=== PATIENT | female | born 1950 | race Caucasian/White ===

== ENCOUNTER 2019-07-30 16:10 | Outpatient (CLI) | payer MEDICARE, SELFPAY ==
--- NOTE | ~2019-07-30 | US_ITS ---
EXAMINATION: US thyroid DATE: 07/30/2019 16:54 INDICATION: Thyroid cancer status post thyroidectomy. TECHNIQUE: Multiple ultrasound images of the thyroid were obtained. COMPARISON: None. FINDINGS: There is no residual thyroid. There is no lymphadenopathy in the areas examined. IMPRESSION: 1. Thyroidectomy. Reviewed, dictated and finalized at location A. IMPRESSION: 1. Thyroidectomy.
== END 2019-07-30 16:11 | disposition home or self-care (01) ==
PROVIDERS: PCP Family Medicine; Visit Provider Internal Medicine Endocrinology, Diabetes & Metabolism
DX: C73 Malignant neoplasm of thyroid gland (principal)
CPT/HCPCS: 76536

== ENCOUNTER 2019-11-07 16:24 | Outpatient (CLI) | payer MEDICARE, SELFPAY ==
--- NOTE | ~2019-11-07 | MM_ITS ---
EXAMINATION: MM screening carina BI w ginna HISTORY: Screening mammogram TECHNIQUE: Craniocaudal and mediolateral oblique 3-D tomosynthesis images were obtained and synthetic 2-D images were generated. CAD analysis was submitted and interpreted. COMPARISON: No prior mammogram is available for comparison at this institution. BREAST PARENCHYMAL COMPOSITION: There are scattered areas of fibroglandular density. FINDINGS: RIGHT BREAST: There is no evidence of suspicious mass, calcification, or architectural distortion to suggest malignancy. LEFT BREAST: There is a possible mass in the middle third of the central breast best appreciated 4.5 cm from the nipple on craniocaudal tomosynthesis image 28/57. IMPRESSION: 1. Possible left breast mass 2. Additional mammographic views and possible breast ultrasound are recommended. BI-RADS Category 0: Incomplete: Needs additional imaging evaluation. Reviewed, dictated and finalized at location A. IMPRESSION: 1. Possible left breast mass 2. Additional mammographic views and possible breast ultrasound are recommended . BI-RADS Category 0: Incomplete: Needs additional imaging evaluation.
== END 2019-11-07 16:25 | disposition home or self-care (01) ==
PROVIDERS: PCP Family Medicine; Visit Provider Obstetrics & Gynecology
DX: Z12.31 Encounter for screening mammogram for malignant neoplasm of breast (principal); R92.8 Other abnormal and inconclusive findings on diagnostic imaging of breast
CPT/HCPCS: 77063; 77067

== ENCOUNTER 2019-12-13 11:24 | Outpatient (CLI) | payer MEDICARE, SELFPAY ==
--- NOTE | ~2019-12-13 | MMUS_ITS ---
EXAMINATION: MM diagnostic mammo unilat LT, US breast LT complete HISTORY: Follow-up possible left breast mass TECHNIQUE: Additional 3-D tomosynthesis images of the left breast were performed and synthetic 2-D im ages were generated. CAD analysis was submitted and interpreted. High resolution left breast ultrasou nd was performed. COMPARISON: 11/07/2019 BREAST PARENCHYMAL COMPOSITION: Breast composed of scattered areas of fibroglandular density FINDINGS: MAMMOGRAPHIC FINDINGS: There is a persistent focal asymmetry centrally in the left breast on CC view without definite correl ate on MLO or mediolateral views. ULTRASOUND: Left breast ultrasound: At 3:00, 1.5 cm from the nipple there is a circumscribed hypoechoic mass measuring 3 mm with parallel orientation, no posterior features at 3:00, 3 cm from the nipple, measuring 3 mm. IMPRESSION: 1. Probable benign left breast masses. 2. Recommend 6 month follow-up diagnostic left mammogram and ultrasound BI-RADS category 3, probably benign findings. Reviewed, dictated and finalized at location A. IMPRESSION: 1. Probable benign left breast masses. 2. Recommend 6 month follow-up diagnostic left mammogram and ultrasound BI-RADS category 3, probably benign findings.
== END 2019-12-13 11:25 | disposition home or self-care (01) ==
PROVIDERS: PCP Family Medicine; Visit Provider Obstetrics & Gynecology
DX: R92.8 Other abnormal and inconclusive findings on diagnostic imaging of breast (principal)
CPT/HCPCS: 76641; 77065

== ENCOUNTER 2020-01-30 10:42 | Outpatient (CLI) | payer MEDICARE, SELFPAY ==
--- NOTE | ~2020-01-30 | US_ITS ---
EXAMINATION: US pelvic complete w TV DATE: 01/30/2020 11:26 INDICATION: Pelvic pain Comparison:No prior studies for comparison. TECHNIQUE: Multiple transabdominal sonographic images of the pelvis performed. Patient refused transv aginal examination. FINDINGS: The uterus uterus is surgically absent. Ovaries are not identified, possibly surgically abs ent. Correlate clinically. There is no free fluid in the pelvis. There are no abnormal masses seen o n either side. IMPRESSION: 1. Unremarkable pelvic ultrasound status post hysterectomy. Reviewed, dictated and finalized at location A.
== END 2020-01-30 10:43 | disposition home or self-care (01) ==
PROVIDERS: PCP Obstetrics & Gynecology; Visit Provider Obstetrics & Gynecology
DX: R10.2 Pelvic and perineal pain (principal)
CPT/HCPCS: 76830; 76856

== ENCOUNTER 2020-07-23 08:51 | Outpatient (CLI) | payer MEDICARE, SELFPAY ==
--- NOTE | ~2020-07-23 | DEXA_ITS ---
Bone Density Report Name: Marcela Coleman Age: 69 Sex: Female Ethnicity: White Date of : 1950 Indication: postmenopausal; height loss; cancer; hysterectomy; rheumatoid arthritis; Referring Provider: Thu Parekh Study: Bone densitometry was performed. Exam Date: July 23, 2020 Accession number: [id number] Bone Density: Region BMD T-score Z-score Classification AP Spine (L1-L4) 0.937 -1.0 1.0 Normal Femoral Neck (Left) 0.598 -2.3 -0.5 Osteopenia Total Hip (Left) 0.784 -1.3 0.1 Osteopenia Total Hip Bilateral Avg 0.741 -1.7 -0.3 Osteopenia Femoral Neck (Right) 0.607 -2.2 -0.4 Osteopenia Total Hip (Right) 0.697 -2.0 -0.6 Osteopenia World Health Organization criteria for BMD impression classify patients as: Normal (T-score at or above -1.0), Osteopenia (T-score between -1.0 and -2.5), or Osteoporosis (T-score at or below -2.5). 10-year Fracture Risk(1): Major Osteoporotic Fracture 16% Hip Fracture 3.7% Reported Risk Factors: [place] (), Neck BMD=0.598, BMI=22.3, rheumatoid arthritis (1) FRAX(R) Version 3.08. Fracture probability calculated for an untreated patient. Fracture probability may be lower if the patient has received treatment. Clinical Information Provided by Patient: Has rheumatoid arthritis Has the following medical conditions: Cancer, Hysterectomy, hypothyroidism Patient maximum height was 67 Menopause Age: 46 No regular weight bearing exercise Does not regularly consume dairy products Onset of menses at age 15 Number of children 3 Impression: The patient has low bone mass, based on the Left Femoral Neck T-score. The patient has an estimated ten-year risk of hip fracture of 3.7% and an estimated ten-year risk of major fracture of 16%, based on the WHO FRAX algorithm. Discussion: BONE DENSITY IS LOW AT ONE OR MORE SKELETAL SITES. THE PATIENT'S BMD AND CLINICAL RISK FACTORS CONTRIBUTE TO THIS PATIENT'S INCREASED RISK OF FRACTURE. This patient's lowest T-score is low at one or more skeletal sites. It meets the World Health Organization's (WHO) criteria for ?low bone mass? (T-score between -1.0 and -2.5). The patient's 10-year risk of hip fracture as calculated by FRAX exceeds the threshold where pharmacological therapy is recommended by the National Osteoporosis Foundation (NOF). However, all treatment decisions require clinical judgment and consideration of individual patient factors, including patient preferences, comorbidities, previous drug use, risk factors not captured in the FRAX model (e.g., frailty, falls, vitamin D deficiency, increased bone turnover, interval significant decline in bone density) and possible under or overestimation of fracture risk by FRAX. The patient should follow a healthful lifestyle (good nutrition with adequate calcium and vitamin D, and appropriat
== END 2020-07-23 08:52 | disposition home or self-care (01) ==
PROVIDERS: PCP Obstetrics & Gynecology; Visit Provider Internal Medicine Endocrinology, Diabetes & Metabolism
DX: E03.9 Hypothyroidism, unspecified (principal); Z78.0 Asymptomatic menopausal state; M85.852 Other specified disorders of bone density and structure, left thigh; M85.851 Other specified disorders of bone density and structure, right thigh
CPT/HCPCS: 77080

== ENCOUNTER 2020-07-23 09:59 | Outpatient (CLI) | payer MEDICARE, SELFPAY ==
[2020-07-23 12:10] LABS: Free T4 Free Thyroxine 1.11 ng/mL (0.78-2.19)
[2020-07-26 07:22] LABS: Triiodothyronine T3 Free 2.3 pg/mL (2.3-4.2)
== END 2020-07-23 10:00 | disposition home or self-care (01) ==
LOC: ANHLAB 10:03
PROVIDERS: PCP Obstetrics & Gynecology; Visit Provider Internal Medicine Endocrinology, Diabetes & Metabolism
DX: C73 Malignant neoplasm of thyroid gland (principal); E03.9 Hypothyroidism, unspecified; E04.1 Nontoxic single thyroid nodule; Z78.0 Asymptomatic menopausal state; M85.852 Other specified disorders of bone density and structure, left thigh; M85.851 Other specified disorders of bone density and structure, right thigh
CPT/HCPCS: 36415; 77080; 84439; 84443; 84481

== ENCOUNTER 2020-07-29 11:53 | Outpatient (CLI) | payer MEDICARE, SELFPAY ==
[2020-07-29 16:21] LABS: Anion Gap 6 mmol/L (8-16); Blood Urea Nitrogen 15 mg/dL (7-17); Carbon Dioxide 29 mmol/L (22-30); Chloride 103 mmol/L (98-107); Estimated Glomerular Filt Rate > 60; Glucose 93 mg/dL (65-105); Sodium 138 mmol/L (137-145)
[2020-07-29 16:33] LABS: Parathyroid Intact 24.3 pg/mL (7.5-53.5)
[2020-07-29 16:39] LABS: Vitamin D 25 Hydroxy 36.2 ng/mL
== END 2020-07-29 11:54 | disposition home or self-care (01) ==
PROVIDERS: PCP Family Medicine; Visit Provider Internal Medicine Endocrinology, Diabetes & Metabolism
DX: M85.80 Other specified disorders of bone density and structure, unspecified site (principal)
CPT/HCPCS: 36415; 80048; 82306; 83970

== ENCOUNTER 2021-02-19 14:37 | Outpatient (CLI) | payer MEDICARE, SELFPAY ==
--- NOTE | ~2021-02-19 | MR_ITS ---
EXAMINATION: MR brain/brain stem wo con EXAM DATE: 02/19/2021 15:33 INDICATION: R42 - Dizziness and giddiness. Associated headaches. States a table fell on her head a ye ar ago. TECHNIQUE: Magnetic resonance imaging (MRI) of the brain/brain stem obtained without contrast. Wendy al T1, axial diffusion, gradient echo (T2*), T1, T2, FLAIR sequences obtained. Correlation is made t o head CT 06/17/2019. FINDINGS: There are no areas of restricted diffusion to suggest acute infarction. There is no acute hemorrhage seen on the T2*, a hemosiderin sensitive sequence. No intraparenchymal brain mass lesion. There is mild periventricular and subcortical T2/FLAIR signal hyperintensity, nonspecific but probab ly related to small vessel ischemic disease (microangiopathy). There is mild prominence of the sulc i and ventricles related to cerebral atrophy. Small old right basal ganglia lacunar infarction. Ther e are no extra-axial collections. Flow voids are seen in the cerebral arteries on the T2-weighted se quences consistent with their expected patency. The orbits are unremarkable. Soft tissue is unremar kable. IMPRESSION: 1. Small old right basal ganglia lacunar infarction. 2. Mild age related findings. Reviewed, dictated and finalized at location A.
== END 2021-02-19 14:38 | disposition home or self-care (01) ==
LOC: ANHIMG 14:50
PROVIDERS: PCP Family Medicine; Visit Provider Nurse Practitioner
DX: R42 Dizziness and giddiness (principal); Z86.73 Personal history of transient ischemic attack (TIA), and cerebral infarction without residual deficits
CPT/HCPCS: 70551

== ENCOUNTER 2021-07-27 12:06 | Outpatient (CLI) | payer MEDICARE, SELFPAY ==
[2021-07-27 13:19] LABS: Free T4 Free Thyroxine 1.78 ng/mL (0.78-2.19)
== END 2021-07-27 12:07 | disposition home or self-care (01) ==
PROVIDERS: PCP Family Medicine; Visit Provider Internal Medicine Endocrinology, Diabetes & Metabolism
DX: E03.9 Hypothyroidism, unspecified (principal)
CPT/HCPCS: 36415; 84439; 84443

== ENCOUNTER 2023-02-09 13:12 | Outpatient (CLI) | payer MEDICARE, SELFPAY ==
--- NOTE | ~2023-02-09 | DEXA_ITS ---
Bone Density Report Name: FREDI JAQUEZ Age: 72 Sex: Female Ethnicity: White Date of : 1950 Indication: postmenopausal; screening for osteoporosis; height loss; cancer; hysterectomy; rheumatoid arthritis; Referring Provider: ABIMBOLA ROLLE Study: Bone densitometry was performed. Exam Date: February 09, 2023 Accession number: [id number] Bone Density: Region BMD T-score Z-score Classification AP Spine(L1-L4) 0.951 -0.9 1.3 Normal Femoral Neck (Left) 0.657 -1.7 0.2 Osteopenia Total Hip (Left) 0.756 -1.5 0.1 Osteopenia Femoral Neck (Right) 0.618 -2.1 -0.2 Osteopenia Total Hip (Right) 0.693 -2.0 -0.5 Osteopenia Total Hip Mean 0.724 -1.8 -0.2 Osteopenia World Health Organization criteria for BMD impression classify patients as: Normal (T-score at or above -1.0), Osteopenia (T-score between -1.0 and -2.5), or Osteoporosis (T-score at or below -2.5). 10-year Fracture Risk(1): Major Osteoporotic Fracture 16% Hip Fracture 3.7% Reported Risk Factors: [place] (), Neck BMD=0.618, BMI=23.7, rheumatoid arthritis (1) FRAX(R) Version 3.08. Fracture probability calculated for an untreated patient. Fracture probability may be lower if the patient has received treatment. Clinical Information Provided by Patient: Has rheumatoid arthritis Has the following medical conditions: Cancer, Hysterectomy Patient maximum height was 66 Menopause Age: 46 Does not regularly consume dairy products Onset of menses at age 15 Number of children 3 Impression: The patient has low bone mass, based on the Right Femoral Neck T-score. The patient has an estimated ten-year risk of hip fracture of 3.7% and an estimated ten-year risk of major fracture of 16%, based on the WHO FRAX algorithm. Discussion: BONE DENSITY IS LOW AT ONE OR MORE SKELETAL SITES. THE PATIENT'S BMD AND CLINICAL RISK FACTORS CONTRIBUTE TO THIS PATIENT'S INCREASED RISK OF FRACTURE. This patient's lowest T-score is low at one or more skeletal sites. It meets the World Health Organization's (WHO) criteria for ?low bone mass? (T-score between -1.0 and -2.5). The patient's 10-year risk of hip fracture as calculated by FRAX exceeds the threshold where pharmacological therapy is recommended by the National Osteoporosis Foundation (NOF). However, all treatment decisions require clinical judgment and consideration of individual patient factors, including patient preferences, comorbidities, previous drug use, risk factors not captured in the FRAX model (e.g., frailty, falls, vitamin D deficiency, increased bone turnover, interval significant decline in bone density) and possible under or overestimation of fracture risk by FRAX. The patient should follow a healthful lifestyle (good nutrition with adequate calcium and vitamin D, and appropriate weig
== END 2023-02-09 13:13 | disposition home or self-care (01) ==
PROVIDERS: Visit Provider Internal Medicine Endocrinology, Diabetes & Metabolism
DX: C73 Malignant neoplasm of thyroid gland (principal); R79.89 Other specified abnormal findings of blood chemistry; M85.852 Other specified disorders of bone density and structure, left thigh; M85.851 Other specified disorders of bone density and structure, right thigh
CPT/HCPCS: 77080

== ENCOUNTER 2023-03-06 15:49 | Outpatient (CLI) | payer MEDICARE, SELFPAY ==
--- NOTE | ~2023-03-06 | US_ITS ---
EXAMINATION: US soft tissue head and neck DATE: 03/06/2023 16:20 INDICATION: Thyroid cancer. TECHNIQUE: Multiple grayscale and Doppler ultrasound images of the head and neck were obtained. COMPARISON: None FINDINGS: The thyroid is absent. There is no cervical lymphadenopathy. IMPRESSION: 1. No cervical lymphadenopathy. Reviewed, dictated and finalized at location E.
== END 2023-03-06 15:50 | disposition home or self-care (01) ==
PROVIDERS: Visit Provider Internal Medicine Endocrinology, Diabetes & Metabolism
DX: C73 Malignant neoplasm of thyroid gland (principal)
CPT/HCPCS: 76536